=== PATIENT | female | born 1950 | race Caucasian/White ===

== ENCOUNTER 2024-05-25 16:19 | Emergency (ER) | payer MEDICARE, SELFPAY ==
[2024-05-25 16:25] VITALS: BP 171/80
[2024-05-25 17:54] VITALS: BMI 33.2
[2024-05-25 18:05] VITALS: BP 179/74
--- NOTE | 2024-05-25 19:18 | ED.GENMED ---
History of Present Illness
General
Chief Complaint: Musculo-Skeletal Complaint
Source: patient
Exam Limitations: none
Time Seen by Provider: 05/25/24 17:32
History of Present Illness
History of Present Illness:
This is 73-year-old female presents with right knee pain that has been ongoing for years. She states been worse over the last 3 to 4 months. She has seen her primary care doctor told it was arthritis. The patient states the pain is getting worse
when she tries to stand up. It does seem better when she moves around but she admits to morning stiffness. No fevers. Occasional swelling. Denies any calf pain. No leg swelling. No chest pain or shortness of breath. No fevers or redness.
Again, symptoms been ongoing for a long period of time. She has seen orthopedics in the past.
Past History
Past History
ED Past Medical History: HTN and Hypercholesterolemia
Phy Exam
Physical Exam
Physical Exam:
CONSTITUTIONAL Vital signs reviewed, Patient alert and oriented to person, place and time. Well-appearing
HEAD atraumatic, normocephalic.
EYES eyelids normal to inspection, Extraocular muscles intact, Conjunctiva normal, Sclera normal.
NECK normal range of motion, Trachea midline, no jugular venous distention.
RESP no respiratory distress
BACK No obvious deformities
UPPER EXTREMITY Gross Range of motion normal, gross motor strength normal
LOWER EXTREMITY Gross range of motion normal, Gross motor strength normal, no redness, no effusion, no palpable cords, no edema, normal distal perfusion and pulses
NEURO Speech normal, No focal motor deficits include, Carlyle coma scale 15, Memory normal, Cranial Nerves intact to screening exam.
SKIN Skin warm, dry, and normal in color.
PSYCHIATRIC Patient oriented to person place and time, Normal affect.
Course
Orders/Labs/Results
Orders:
Orders
05/25/24 18:00
Knee, Right 4 or More Views [CR Knee- Right 4 Or More View*] Urgent
Comment:
Reason For Exam: nontraumatic pain
Vital Signs
Initial and Last Documented VS:
Initial Vital Signs
Temp Pulse Resp BP Pulse Ox
98.1 F 63 18 171/80 96
05/25/24 16:25 05/25/24 16:25 05/25/24 16:25 05/25/24 16:25 05/25/24 16:25
Last Documented Vital Signs
Temp Pulse Resp BP Pulse Ox
98.1 F 53 18 168/70 97
05/25/24 16:25 05/25/24 19:43 05/25/24 16:25 05/25/24 19:43 05/25/24 19:43
MDM/Problems Addressed
MDM/Problems Addressed:
Acute on chronic knee pain
*Radiology
Radiology exam reviewed: all reviewed NAD by ED Provider
*Pulse Oximetry
Patient hypoxic: no
*Critical Care Note
Total Time (30-74mins, 75-104mins- exclusive of procedures): Not Applicable
Data Reviewed
Source: patient
Further Testing Considered But Not Given:
Considered ultrasound but no clinical concern for DVT.
Patient Management
Escalation/DeEscalation of care consider admission/obs:
Symptoms have been chronic. Suspect osteoarthritis as an etiology. I see no evidence of DVT or infection. Will refer to orthopedics for outpatient follow-up
ED Attending Note
-
Portions of this chart may have been created with voice recognition software.� Occasional wrong word or��sound alike� substitutions may have occurred due to the inherent limitations of voice recognition software.
Discharge Plan
Departure
Patient Disposition: Home (Routine Discharge)
Date of Disposition: 05/25/24
Time of Disposition: 19:35
Patient with high blood pressure during this ER visit?: Yes
Discharge Problem:
Chronic knee pain
Instructions: Knee Pain (DC), BLOOD PRESSURE
Referrals:
Pallavi Cummins I., DO [Active] -
Jeremi Zaidi MD [Family Provider] -
Activity Restrictions/Additional Instructions:
Please see orthopedics in the next 3 to 5 days for follow-up and reevaluation. Return immediately for worsening pain, fevers, swelling, shortness of breath, chest pain, one-sided leg swelling or any other concerns.
Interventions
Interventions:
*Risk Screen - Suicide Last Done: 05/25/24 17:54
*General Assessment Last Done: 05/25/24 17:54
*Neglect/Abuse Screening Last Done: 05/25/24 17:54
*Nursing Disposition Last Done: 05/25/24 19:43
ED-Musculoskeletal Assessment Last Done: 05/25/24 17:54
Discharge Date and Time
Print Language: SYRIAC
[2024-05-25 19:43] VITALS: BP 168/70
== END 2024-05-25 19:47 | disposition home or self-care (01) ==
LOC: EMR 16:19
PROVIDERS: EMERGENCY PHYSICIAN Emergency Medicine; FAMILY PHYSICIAN Family Medicine
DX: G89.29 Other chronic pain (principal); M25.561 Pain in right knee; I10 Essential (primary) hypertension; E78.00 Pure hypercholesterolemia, unspecified
CPT/HCPCS: 99283; 73564